=== PATIENT | female | born 1965 | race Caucasian/White ===

== ENCOUNTER 2017-05-12 16:17 | Emergency (ER) | payer BC ==
[2017-05-12 19:14] LABS: Urine Bilirubin Negative (Negative); Urine Glucose Negative (Negative); Urine Nitrite Negative (Negative)
[2017-05-12] MEDS ORDERED: Ketorolac INJ* 30 MG/ML 1 ML VIAL IV PUSH ONE (19:43)
[2017-05-12] MEDS ORDERED: Orphenadrine Citrate IV* 30 MG/ML 2 ML VIAL IV ONE (19:43)
[2017-05-12] MEDS ORDERED: Dexamethasone IV* 4 MG/ML 1 ML (4 MG) IV SLOW PU ONE (19:43)
--- NOTE | 2017-05-12 20:30 | RAD ---
HISTORY: Back pain COMPARISONS: None VIEWS: 5 , Frontal, lateral, coned-down lateral sacral, and bilateral oblique views of the lumbar spine. FINDINGS: ALIGNMENT: There is straightening of the normal lumbar lordosis. VERTEBRAL BODIES: The vertebral body heights are normal. The interpedicular distances are normal. There is mild anterolateral marginal osteophyte formation JOINTS: There is facet osteoarthritis most pronounced along the lower lumbar spine INTERVERTEBRAL DISCS: There is mild diffuse loss of intervertebral disc height. SOFT TISSUE: Unremarkable. OTHER: The pelvis is unremarkable. The lung bases are clear. IMPRESSION: MILD DEGENERATIVE DISC DISEASE AND OSTEOARTHRITIS, MOST PRONOUNCED ALONG THE LOWER LUMBAR SPINE
[2017-05-12 21:00] VITALS: BP 129/88
--- NOTE | 2017-05-13 06:52 | ED ---
Noelle Carroll Alfonso, scribed for Noel Lemus MD on 05/12/17 at 1941 . Back Pain - HPI Summary HPI Summary: This patient is a 52 year old F presenting to [facility] with a chief complaint of right sided back pain since two weeks ago. She has previously seen both a chiropractor and massage therapist for this complaint. The patient rates the pain 9/10 in severity at its worse. Symptoms aggravated by an injury two weeks ago (lifting 40 lb of groceries into the house), mowing her lawn today, and a massage earlier today. Symptoms alleviated by left lateral recumbent position and ice. Patient reports back spasms. Patient denies bowel symptoms, and urinary symptoms. - History of Current Complaint Chief Complaint: EDBackInjuryPain Stated Complaint: BACK PAIN,LT FLANK PAIN Time Seen by Provider: 05/12/17 19:33 Hx Obtained From: Patient Onset/Duration: Sudden Onset, Lasting Weeks - 2, Still Present Timing: Constant Back Pain Location: Is Discrete @ - right sided back Severity Currently: Severe Pain Intensity: 9 Pain Scale Used: 0-10 Numeric Character: Spasmodic Aggravating Symptom(s): Other - injury two weeks ago (lifting 40 lb of groceries into the house), mowing her lawn today, and a massage earlier today Alleviating Symptom(s): Other - left lateral recumbent position and ice Associated Signs And Symptoms: Positive: Other - back spasms. Patient denies bowel symptoms, and urinary symptoms. - Allergies/Home Medications Allergies/Adverse Reactions: Allergies Allergy/AdvReac Type Severity Reaction Status Date / Time CILLINS Allergy Hives/Diff. Uncoded 05/12/17 16:25 Breathing/I tching PMH/Surg Hx/FS Hx/Imm Hx Opthamlomology History: Denies: Hx Legally Blind EENT History: Denies: Hx Deafness Infectious Disease History: No Infectious Disease History: Denies: Traveled Outside the [place] in Last 30 Days - Family History Known Family History: Positive: Cardiac Disease, Hypertension, Diabetes, Other - HLD Osteoporosis - Social History Alcohol Use: Weekly Substance Use Type: Reports: None Smoking Status (MU): Never Smoked Tobacco Review of Systems Negative: Fever Positive: Other - Negative bowel symptoms Positive: no symptoms reported Positive: Other - right sided back pain, back spasms All Other Systems Reviewed And Are Negative: Yes Physical Exam - Summary Physical Exam Summary: VITAL SIGNS: Reviewed. GENERAL: Patient is a well-developed and nourished female who is lying comfortable in the stretcher. Patient is not in any acute respiratory distress. HEAD AND FACE: No signs of trauma. No ecchymosis, hematomas or skull depressions. No sinus tenderness. EYES: PERRLA, EOMI x 2, No injected conjunctiva, no nystagmus. EARS: Hearing grossly intact. Ear canals and tympanic membranes are within normal limits. MOUTH: Oropharynx within normal limits. NECK: Supple, trachea is midline, no adenopathy, no JVD, no carotid bruit, no c- spine tenderness, neck with full ROM. CHEST: Symmetric, no tenderness at palpation LUNGS: Clear to auscultation bilaterally. No wheezing or crackles. CVS: Regular rate and rhythm, S1 and S2 present, no murmurs or gallops appreciated. BACK: Paraspinal lumbar muscle tenderness and spasms more on the right side than the left side. ABDOMEN: Soft, non-tender. No signs of distention. No rebound no guarding, and no masses palpated. Bowel sounds are normal. EXTREMITIES: FROM in all major joints, no edema, no cyanosis or clubbing. NEURO: Alert and oriented x 3. No acute neurological deficits. Speech is normal and follows commands. SKIN: Dry and warm Triage Information Reviewed: Yes Vital Signs On Initial Exam: Initial Vitals Temp Pulse Resp BP Pulse Ox 99.2 F 71 16 134/93 97 05/12/17 16:19 05/12/17 16:19 05/12/17 16:19 05/12/17 16:19 05/12/17 16:19 Vital Signs Reviewed: Yes - [place] Coma Scale Coma Scale Total: 15 Diagnostics - Vital Signs Vital Signs Temp Pulse Resp BP Pulse Ox 05/12/17 16:19 99.2 F 71 16 134/93 97 - Laboratory Lab Results: Lab Results 05/12/17 Range/Units 19:05 Urine Color Straw Urine Appearance Clear Urine pH 5.0 (5-9) Ur Specific [place] 1.005 L (1.010-1.030) Urine Protein Negative (Negative) Urine Ketones Negative (Negative) Urine Blood Negative (Negative) Urine Nitrate Negative (Negative) Urine Bilirubin Negative (Negative) Urine Urobilinogen Negative (Negative) Ur Leukocyte Esterase Negative (Negative) Urine Glucose Negative (Negative) Lab Statement: Any lab studies that have been ordered have been reviewed, and results considered in the medical decision making process. - Radiology Lumbar spine X-Ray Radiology Interpretation Completed By: Radiologist - MILD DEGENERATIVE DISC DISEASE AND OSTEOARTHRITIS, MOST PRONOUNCED ALONG THE LOWER LUMBAR SPINE. ED physician has reviewed this radiology report and agrees. Back Pain Course/Dx - Course Assessment/Plan: This patient is a 52 year old F presenting to [facility] with a chief complaint of right sided back pain since two weeks ago. She has previously seen both a chiropractor and massage therapist for this complaint. The patient rates the pain 9/10 in severity at its worse. Symptoms aggravated by an injury two weeks ago (lifting 40 lb of groceries into the house), mowing her lawn today, and a massage earlier today. Symptoms alleviated by left lateral recumbent position and ice. Patient reports back spasms. Patient denies bowel symptoms, and urinary symptoms. A lumbar spine X-Ray reveals, per radiologist, MILD DEGENERATIVE DISC DISEASE AND OSTEOARTHRITIS, MOST PRONOUNCED ALONG THE LOWER LUMBAR SPINE. ED physician has reviewed this radiology report and agrees. In the ED course the patient was given Decadron, toradol, and Norflex for the pain, and her symptoms subsided. The patient reports the pain is only 1/10 on ambulation. The patient is significantly improved and ambulating with a good steady walk. Therefore, the patient will be discharged home with PCP follow up. The patient is hemodynamically stable and alert and oriented x3. - Diagnoses Differential Diagnosis/HQI/PQRI: Positive: Arthritis, Fracture, Herniated Disc, Strain, Sprain Provider Diagnoses: Lumbar strain Discharge - Discharge Plan Condition: Stable Disposition: HOME Prescriptions: Methocarbamol [Robaxin-750 MG TAB] 750 mg PO TID #9 tab Methylprednisolone [Medrol Dosepak 4 MG*] 4 mg PO .SEE DELON INSTRUCTION #1 delon Naproxen TAB* [Naprosyn 250 mg TAB*] 500 mg PO Q8H PRN #30 tab PRN Reason: Pain Patient Education Materials: Low Back Strain (ED) Referrals: Riki Salas MD [Primary Care Provider] - Additional Instructions: RETURN TO THE EMERGENCY DEPARTMENT FOR CHANGING OR WORSENING SYMPTOMS. The documentation as recorded by the scribe, Caetta,Moose accurately reflects the service I personally performed and the decisions made by me, Noel Lemus MD.
== END 2017-05-12 20:59 | disposition home or self-care (01) ==
LOC: ED 16:17
DX: S39.012A Strain of muscle, fascia and tendon of lower back, initial encounter (principal); M19.90 Unspecified osteoarthritis, unspecified site; M51.36 Other intervertebral disc degeneration, lumbar region; M47.9 Spondylosis, unspecified; X58.XXXA Exposure to other specified factors, initial encounter; Y92.9 Unspecified place or not applicable
CPT/HCPCS: 72110; 81003; 96374; 96375; 99283; J1100; J1885; J2360